=== PATIENT | male | born 1970 | race African-American/Black ===

== ENCOUNTER 2018-09-03 13:09 | Emergency (ER) | payer OTHER ==
[2018-09-03] MEDS ORDERED: LIDOCAINE 2% MPF 5 ML VIAL ONE (13:42)
[2018-09-03] MEDS ORDERED: AZITHROMYCIN 250 MG TAB ONE (13:42)
[2018-09-03] MEDS ORDERED: CEFTRIAXONE 250 MG/VIAL ONE (13:42)
--- NOTE | 2018-09-03 13:52 | EDPHYS ---
Physician Documentation [facility] Name: aSbino Norman Age: 47 yrs Sex: Male : 1970 Arrival Date: 09/03/2018 Time: 13:11 Bed 26 Private MD: ED Physician Rhys Kay HPI: 09/03 13:49 This 47 yrs old Black Male presents to ER via Ambulatory with complaints of STD. kb 13:49 The patient presents with a known STD exposure, with a history of engaging in sex with kb a single partner, did not use protection, symptoms include "just feels off down there". Onset: The symptoms/episode began/occurred 1 week(s) ago. Modifying factors: The symptoms are alleviated by nothing, the symptoms are aggravated by nothing. Associated signs and symptoms: The patient has no apparent associated signs or symptoms. Severity of symptoms: At their worst the symptoms were mild, in the emergency department the symptoms are unchanged. The patient has not experienced similar symptoms in the past. The patient has not recently seen a physician. Pt states "I hooked up with my ex-girlfriend and didn't use protection. She had been to the dr for her yearly before that and got a call after that she had clamydia. She told him about it a week ago and he has felt like something wasn't right since then.". Historical: - Allergies: 13:15 No Known Allergies; la1 - PMHx: 13:15 None; la1 - Immunization history:: Adult Immunizations up to date. - Social history:: Smoking status: Patient uses tobacco products, denies chronic smoking, but will smoke occasionally. - Ebola Screening: : No symptoms or risks identified at this time. ROS: 13:48 Constitutional: Negative for fever, chills, and weight loss, ENT: Negative for injury, kb pain, and discharge, Neck: Negative for injury, pain, and swelling, Cardiovascular: Negative for chest pain, palpitations, and edema, Respiratory: Negative for shortness of breath, cough, wheezing, and pleuritic chest pain, Abdomen/GI: Negative for abdominal pain, nausea, vomiting, diarrhea, and constipation, MS/Extremity: Negative for injury and deformity, Skin: Negative for injury, rash, and discoloration, Neuro: Negative for headache, weakness, numbness, tingling, and seizure. 13:48 : Positive for penile discharge. Exam: 13:48 Constitutional: This is a well developed, well nourished patient who is awake, alert, kb and in no acute distress. Head/Face: Normocephalic, atraumatic. Chest/axilla: Normal chest wall appearance and motion. Nontender with no deformity. No lesions are appreciated. Cardiovascular: Regular rate and rhythm with a normal S1 and S2. No gallops, murmurs, or rubs. Normal PMI, no JVD. No pulse deficits. Respiratory: Lungs have equal breath sounds bilaterally, clear to auscultation and percussion. No rales, rhonchi or wheezes noted. No increased work of breathing, no retractions or nasal flaring. Abdomen/GI: Soft, non-tender, with normal bowel sounds. No distension or tympany. No guarding or rebound. No evidence of tenderness throughout. Skin: Warm, dry with normal turgor. Normal color with no rashes, no lesions, and no evidence of cellulitis. MS/ Extremity: Pulses equal, no cyanosis. Neurovascular intact. Full, normal range of motion. Neuro: Awake and alert, GCS 15, oriented to person, place, time, and situation. Cranial nerves II-XII grossly intact. Motor strength 5/5 in all extremities. Sensory grossly intact. Cerebellar exam normal. Normal gait. Vital Signs: 13:15 BP 140 / 100; Pulse 82; Resp 16; Temp 99.0; Pulse Ox 98% on R/A; Weight 95.25 kg; la1 Height 5 ft. 11 in. (180.34 cm); 13:15 Body Mass Index 29.29 (95.25 kg, 180.34 cm) la1 MDM: 13:21 Patient medically screened. kb 13:47 Data reviewed: vital signs, nurses notes. Data interpreted: Pulse oximetry: on room air kb is 98 %. Interpretation: normal. Counseling: I had a detailed discussion with the patient and/or guardian regarding: the historical points, exam findings, and any diagnostic results supporting the discharge/admit diagnosis, the need for outpatient follow up, a family practitioner, to return to the emergency department if symptoms worsen or persist or if there are any questions or concerns that arise at home. 09/03 13:44 Order name: Urine Dipstick--Ancillary (enter results) 09/03 13:26 Order name: Urine Dipstick-Ancillary (obtain specimen); Complete Time: 13:37 kb Administered Medications: 13:34 Drug: Rocephin (cefTRIAXone) 250 mg Route: IM; Site: right gluteus; aj 13:54 Follow up: Response: No adverse reaction aj 13:34 Drug: Zithromax 1 grams Route: PO; aj 13:52 Follow up: Response: No adverse reaction aj Disposition: 16:54 Co-signature as Attending Physician, Rhys Kay MD. rn Disposition: 09/03/18 13:51 Discharged to Home. Impression: Chlamydial infection, unspecified. - Condition is Stable. - Discharge Instructions: Chlamydia, Male. - Medication Reconciliation Form, Thank You Letter, Antibiotic Education, Prescription Opioid Use form. - Follow up: Emergency Department; When: As needed; Reason: Worsening of condition. Follow up: Private Physician; When: 2 - 3 days; Reason: Recheck today's complaints, Continuance of care, Re-evaluation by your physician. Signatures: Dispatcher [employer] EDHumera Sibley, SCHEDULE HANGER-C SCHEDULE HANGER-CkXuan Mendoza, RN RN Rhys Weller MD MD rn Attema, Lee, RN RN la1 Corrections: (The following items were deleted from the chart) 14:06 13:51 09/03/2018 13:51 Discharged to Home. Impression: Chlamydial infection, aj unspecified. Condition is Stable. Forms are Medication Reconciliation Form, Thank You Letter, Antibiotic Education, Prescription Opioid Use. Follow up: Emergency Department; When: As needed; Reason: Worsening of condition. Follow up: Private Physician; When: 2 - 3 days; Reason: Recheck today's complaints, Continuance of care, Re-evaluation by your physician. kb
--- NOTE | 2018-09-03 13:52 | ER ---
Nurse's Notes [facility] Name: Sabino Norman Age: 47 yrs Sex: Male : 1970 Arrival Date: 09/03/2018 Time: 13:11 Bed 26 Private MD: Diagnosis: Chlamydial infection, unspecified Presentation: 09/03 13:13 Presenting complaint: Patient states: I got back with an ex and she called and told me la1 I need to get treated. She said she either had chlamydia or gonorrhea. Pt reports whitish discharge. Denies pain, states "I cannot take pills so if yall could give me a shot that would really help". Transition of care: patient was not received from another setting of care. Onset of symptoms was September 03, 2018. Risk Assessment: Do you want to hurt yourself or someone else? Patient reports no desire to harm self or others. Initial Sepsis Screen: Does the patient meet any 2 criteria? No. Patient's initial sepsis screen is negative. Does the patient have a suspected source of infection? No. Patient's initial sepsis screen is negative. Care prior to arrival: None. 13:13 Method Of Arrival: Ambulatory la1 13:13 Acuity: UZMA 4 la1 Historical: - Allergies: 13:15 No Known Allergies; la1 - PMHx: 13:15 None; la1 - Immunization history:: Adult Immunizations up to date. - Social history:: Smoking status: Patient uses tobacco products, denies chronic smoking, but will smoke occasionally. - Ebola Screening: : No symptoms or risks identified at this time. Screenin:26 Abuse screen: Denies threats or abuse. Denies injuries from another. Nutritional aj screening: No deficits noted. Tuberculosis screening: No symptoms or risk factors identified. Fall Risk None identified. Assessment: 13:26 General: Appears in no apparent distress. comfortable, Behavior is calm, cooperative, aj appropriate for age. Pain: Denies pain. Neuro: Level of Consciousness is awake, alert, obeys commands, Oriented to person, place, time, situation, Appropriate for age. Respiratory: Airway is patent Respiratory effort is even, unlabored, Respiratory pattern is regular, symmetrical. GI: Abdomen is flat, Bowel sounds present X 4 quads. Abd is soft and non tender. : Reports discharge, from penis that is. Derm: Skin is intact, is healthy with good turgor, Skin is pink, warm \\T\\ dry. normal. 14:04 Reassessment: Patient appears in no apparent distress at this time. No changes from aj previously documented assessment. Patient and/or family updated on plan of care and expected duration. Pain level reassessed. Patient is alert, oriented x 3, equal unlabored respirations, skin warm/dry/pink. Vital Signs: 13:15 BP 140 / 100; Pulse 82; Resp 16; Temp 99.0; Pulse Ox 98% on R/A; Weight 95.25 kg; la1 Height 5 ft. 11 in. (180.34 cm); 13:15 Body Mass Index 29.29 (95.25 kg, 180.34 cm) la1 ED Course: 13:11 Patient arrived in ED. as 13:15 Triage completed. la1 13:15 Arm band placed on left wrist. la1 13:16 Xuan Bender RN is Primary Nurse. aj 13:20 [facility] Faustin [facility] kb 13:20 Rhys Kay MD is Attending Physician. kb 13:26 Patient has correct armband on for positive identification. aj 14:05 No provider procedures requiring assistance completed. Patient did not have IV access aj during this emergency room visit. Administered Medications: 13:34 Drug: Rocephin (cefTRIAXone) 250 mg Route: IM; Site: right gluteus; aj 13:54 Follow up: Response: No adverse reaction aj 13:34 Drug: Zithromax 1 grams Route: PO; aj 13:52 Follow up: Response: No adverse reaction aj Outcome: 13:51 Discharge ordered by . kb 14:05 Discharged to home ambulatory. aj 14:05 Condition: good 14:05 Discharge instructions given to patient, Instructed on discharge instructions, follow up and referral plans. safe sex practices, Demonstrated understanding of instructions, follow-up care. 14:06 Patient left the ED. aj Signatures: Humera Faustin FNP-C FNP-Ckb Myers, Amanda, RN Sharmin Dominguez Lee, RN RN la1
[2018-09-03 14:01] LABS: Urine Blood NEGATIVE (NEG); Urine Glucose NEGATIVE (NEG); Urine Protein NEGATIVE (NEG)
== END 2018-09-03 14:06 | disposition home or self-care (01) ==
LOC: ER 13:09
DX: A74.9 Chlamydial infection, unspecified (principal); Z72.0 Tobacco use
CPT/HCPCS: 81003; 96372; 99283; J0696